=== PATIENT | male | born 1985 | race Caucasian/White ===

== ENCOUNTER 2022-02-05 08:34 | Day surgery (SDC) | payer BC ==
[~2022-02-05 08:34] MED LIST: Iopamidol-M 200 41% 10 ML VIAL FS ONE
[2022-02-05] MEDS ORDERED: Sodium Bicarbonate 2.5 MEQ/5 ML VIAL ONE (09:08)
[2022-02-05] MEDS ORDERED: Lidocaine 1% PF 5 ML VIAL ONE (09:08)
[2022-02-05 09:27] VITALS: BP 116/78; TEMP 98
== END 2022-02-05 10:30 | disposition home or self-care (01) ==
LOC: CSHRAD 08:34
PROVIDERS: ATTEND Neurological Surgery
PROC: B01B1ZZ Fluoroscopy of Spinal Cord using Low Osmolar Contrast (ICD-10-PCS; principal; 2022-02-05)
DX: M51.37 Other intervertebral disc degeneration, lumbosacral region (principal); M48.07 Spinal stenosis, lumbosacral region; M54.50 Low back pain, unspecified; M25.552 Pain in left hip; Z98.1 Arthrodesis status
CPT/HCPCS: 62304; 72132; Q9966